=== PATIENT | male | born 1950 | race Caucasian/White ===

== ENCOUNTER 2022-08-07 15:44 | Emergency (ER) | payer MEDICARE, OTHER, SELFPAY ==
[2022-08-07 16:35] VITALS: BP 132/66; PULSE 60; RESP 22; TEMP 36.9; O2SAT 96
--- NOTE | 2022-08-07 16:47 | ED.URI ---
HPI - URI/Sore Throat General Chief Complaint: Upper Respiratory Infection Stated Complaint: cough,sorethroat Time Seen by Provider: 08/07/22 16:40 Source: patient Mode of arrival: ambulatory Limitations: no limitations History of Present Illness HPI Narrative: is a 71-year-old male patient presenting to the clinic today with complaints of productive cough, congestion, sore throat, shortness of breath x1 week. He does have a history of asthma. He states that he is bringing up clear phlegm. He reports having a low-grade temp with some chills. MD elicited complaint: sore throat and nasal congestion Related Data Home Medications Medication Instructions Recorded Confirmed azelastine 205.5 mcg (0.15 %) intranasal 08/07/22 nasal spray bupropion HCl 150 mg 24 hr tablet, mg PO 08/07/22 extended release esomeprazole magnesium 40 mg mg 08/07/22 capsule,delayed release famotidine 20 mg tablet mg 08/07/22 finasteride 5 mg tablet mg 08/07/22 fluticasone propionate 50 intranasal 08/07/22 mcg/actuation nasal spray,suspension hydralazine 50 mg tablet mg 08/07/22 hydrochlorothiazide 25 mg tablet mg 08/07/22 isosorbide mononitrate 60 mg mg PO 08/07/22 tablet,extended release 24 hr levocetirizine 5 mg tablet (Xyzal) mg 08/07/22 metoprolol succinate 50 mg mg PO 08/07/22 tablet,extended release 24 hr nifedipine 30 mg tablet,extended mg PO 08/07/22 release rosuvastatin 20 mg tablet mg 08/07/22 tamsulosin 0.4 mg capsule mg PO 08/07/22 Allergies Allergy/AdvReac Type Severity Reaction Status Date / Time No Known Allergies Allergy Verified 08/07/22 16:29 Review of Systems Review of Systems: Pertinent positives per HPI. Patient denies any rash, headache, visual changes, dizziness, chest pain, palpitations, nausea, vomiting, diarrhea, constipation, abdominal pain, or any urinary issues. PMFSH Comments At the time of my signature, I reviewed and agree with the nursing past medical, surgical, social, and family history. There is no relevant family history pertinent to the patient complaint. Exam Narrative: General: Well-developed, well nourished, in no apparent distress Head: Normocephalic, atraumatic Eyes: Pupils equally round and reactive to light bilaterally, EOM intact, sclera and conjunctive clear, no discharge, lids normal Ears: TMs intact and clear, ear canals clear, no drainage, grossly hearing normal. Nose: Nares patent, clear nasal discharge, no inflammation, no sinus tenderness. Mouth: Oral pharynx without lesions or masses, good dentition, MMM. Oropharynx red, postnasal drip Neck: Supple, trachea midline, no enlargement of anterior or posterior cervical nodes, no thyroid masses or goiter palpable. Cardio: Regular rate and rhythm, s1 and s2 normal, no murmur appreciated. Resp: Diminished in the lower lung buenrostro with faint wheezing, no rhonchi, rales, or rubs Course Course Emergency Course: Portions of this record may have been created with voice recognition software. Level of Care: Express Care Visit Vital Signs Vital signs: Vital Signs Temperature 36.9 C 08/07/22 16:35 Pulse Rate 60 08/07/22 16:35 Respiratory Rate 22 H 08/07/22 16:35 Blood Pressure 132/66 08/07/22 16:35 Pulse Oximetry 96 08/07/22 16:35 Oxygen Delivery Room Air 08/07/22 16:35 Temperature 36.9 C 08/07/22 16:35 Pulse Rate 60 08/07/22 16:35 Respiratory Rate 22 H 08/07/22 16:35 Blood Pressure 132/66 08/07/22 16:35 Pulse Oximetry 96 08/07/22 16:35 Oxygen Delivery Room Air 08/07/22 16:35 Vital signs reviewed MDM - URI/Sore Throat MDM Narrative Medical decision making narrative: At the time of visit patient is resting comfortably on the exam table. I suspect patient has bronchitis/upper respiratory infection. Prescription for prednisone, azithromycin, and albuterol was sent to the pharmacy. Supportive measures were discussed with the patient he voice
== END 2022-08-07 16:53 | disposition home or self-care (01) ==
PROVIDERS: Emergency Provider Nurse Practitioner Family; PCP Family Medicine
DX: J40 Bronchitis, not specified as acute or chronic (principal); J06.9 Acute upper respiratory infection, unspecified; I25.10 Atherosclerotic heart disease of native coronary artery without angina pectoris; Z95.5 Presence of coronary angioplasty implant and graft; I10 Essential (primary) hypertension; J45.909 Unspecified asthma, uncomplicated
CPT/HCPCS: 99203; G0463

== ENCOUNTER 2023-04-10 12:58 | Emergency (ER) | payer MEDICARE, OTHER, SELFPAY ==
--- NOTE | ~2023-04-10 | XR_ITS ---
EXAMINATION: XR chest 2V DATE: 04/10/2023 13:44 INDICATION: Cough and wheezing TECHNIQUE: PA and lateral views of the chest are obtained. COMPARISON: None available FINDINGS: The lungs are free of acute opacities. No pleural effusion or pneumothorax. The heart size is normal. A hiatal hernia is noted. There is moderate thoracic spondylosis. IMPRESSION: 1. No acute cardiopulmonary abnormality. Reviewed, dictated and finalized at location L.
--- NOTE | 2023-04-10 13:16 | ED.URI ---
HPI - URI/Sore Throat General Chief Complaint: Upper Respiratory Infection Stated Complaint: Cough,Congestion,Wheezing Time Seen by Provider: 04/10/23 13:20 Source: patient Mode of arrival: ambulatory Limitations: no limitations History of Present Illness HPI Narrative: is a 72-year-old male patient presenting to the clinic today with complaints of cough, congestion, and wheezing. His reports that he started having symptoms approximately 1 week ago. He denies any fever chills. States the cough is productive with clear phlegm. Does have a history of asthma. states that they have all been sick for the past week and they are symptoms have improving and he seems to be getting worse. He denies any chest pain or shortness of breath currently. MD elicited complaint: sore throat and nasal congestion Related Data Home Medications Medication Instructions Recorded Confirmed azelastine 205.5 mcg (0.15 %) 2 spray intranasal DAILY 08/07/22 04/10/23 nasal spray bupropion HCl 150 mg 24 hr tablet, 150 mg PO DAILY 08/07/22 04/10/23 extended release esomeprazole magnesium 40 mg 40 mg PO DAILY 08/07/22 04/10/23 capsule,delayed release finasteride 5 mg tablet 5 mg PO DAILY 08/07/22 04/10/23 hydralazine 50 mg tablet 50 mg PO DAILY 08/07/22 04/10/23 hydrochlorothiazide 25 mg tablet 25 mg PO DAILY 08/07/22 04/10/23 isosorbide mononitrate 60 mg 60 mg PO DAILY 08/07/22 04/10/23 tablet,extended release 24 hr levocetirizine 5 mg tablet (Xyzal) 5 mg PO HS 08/07/22 04/10/23 metoprolol succinate 50 mg 50 mg PO DAILY 08/07/22 04/10/23 tablet,extended release 24 hr nifedipine 30 mg tablet,extended 30 mg PO DAILY 08/07/22 04/10/23 release rosuvastatin 20 mg tablet 20 mg PO DAILY 08/07/22 04/10/23 tamsulosin 0.4 mg capsule 0.4 mg PO DAILY 08/07/22 04/10/23 Allergies Allergy/AdvReac Type Severity Reaction Status Date / Time No Known Allergies Allergy Verified 04/10/23 13:13 Review of Systems Review of Systems: Pertinent positives per HPI. Patient denies any fever, chills, rash, headache, visual changes, dizziness, cough, shortness of breath, chest pain, palpitations, nausea, vomiting, diarrhea, constipation, abdominal pain, or any urinary issues. PMFSH Comments At the time of my signature, I reviewed and agree with the nursing past medical, surgical, social, and family history. There is no relevant family history pertinent to the patient complaint. Exam Narrative: General: Well-developed, obese, in no apparent distress Head: Normocephalic, atraumatic Eyes: Pupils equally round and reactive to light bilaterally, EOM intact, sclera and conjunctive clear, no discharge, lids normal Ears: TMs intact and clear, ear canals clear, no drainage, grossly hearing normal. Nose: Nares patent, clear nasal discharge, no inflammation, no sinus tenderness. Mouth: Oral pharynx without lesions or masses, good dentition, MMM. Neck: Supple, trachea midline, no enlargement of anterior or posterior cervical nodes, no thyroid masses or goiter palpable. Cardio: Regular rate and rhythm, s1 and s2 normal, no murmur appreciated. Resp: Diminished in the lower bases otherwise clear, no rhonchi, rales, wheezing or rubs Course Course Emergency Course: Portions of this record may have been created with voice recognition software. Level of Care: Express Care Visit Vital Signs Vital signs: Vital Signs Temperature 36.5 C 04/10/23 13:17 Pulse Rate 63 04/10/23 13:17 Respiratory Rate 22 H 04/10/23 13:17 Blood Pressure 108/66 04/10/23 13:17 Pulse Oximetry 98 04/10/23 13:17 Oxygen Delivery Room Air 04/10/23 13:17 Temperature 36.5 C 04/10/23 13:18 Pulse Rate 63 04/10/23 13:18 Respiratory Rate 22 H 04/10/23 13:18 Blood Pressure 108/66 04/10/23 13:18 Pulse Oximetry 98 04/10/23 13:18 Oxygen Delivery Room Air 04/10/23 13:18 Vital signs reviewed MDM - URI/Sore Throat MDM Narrative
[2023-04-10 13:17] VITALS: BP 108/66; PULSE 63; RESP 22; TEMP 36.5; O2SAT 98
[2023-04-10 13:18] VITALS: BP 108/66; PULSE 63; RESP 22; TEMP 36.5; O2SAT 98
== END 2023-04-10 14:10 | disposition home or self-care (01) ==
PROVIDERS: Emergency Provider Nurse Practitioner Family
DX: J40 Bronchitis, not specified as acute or chronic (principal)
CPT/HCPCS: 71046; 99213; G0463